=== PATIENT | male | born 2000 | race Two or more races ===

== ENCOUNTER 2023-08-09 14:40 | Emergency (ER) | payer BC ==
[~2023-08-09] VITALS: Ht 182.9 cm; Wt 68.0 kg
[2023-08-09] MEDS ORDERED: BUPRENORPHINE HCL 8 MG TAB.SUBL SL ONE ×2 (15:19→15:30)
[2023-08-09] MEDS ORDERED: ONDANSETRON HCL/PF 4 MG/2 ML VIAL ONE (15:19)
[2023-08-09] MEDS ORDERED: IV NS 0.9% 1,000 ML BAG IV ONE (15:30)
[2023-08-09] MEDS ORDERED: ONDANSETRON HCL/PF 4 MG/2 ML VIAL IVP ONE (15:30)
[2023-08-09 15:38] LABS: BASOPHILS % (AUTO) 0.1 % (0.0-2.0); EOSINOPHILS % (AUTO) 0.1 % (0.0-6.0); HEMATOCRIT 57 % (39-51); LYMPHOCYTES # (AUTO) 1.3 K/uL (0.8-4.8); MEAN CORPUSCULAR HEMOGLOBIN 29 PG (26.0-33.0); MEAN CORPUSCULAR HGB CONC 33 g/dl (31.0-36.0); MEAN CORPUSCULAR VOLUME 87 fL (80-96); MONOCYTES # (AUTO) 1.9 K/uL (0.1-1.30); MONOCYTES % (AUTO) 9.3 % (2.0-12.0); NEUTROPHILS # (AUTO) 17.7 K/uL (1.8-8.9); NEUTROPHILS % (AUTO) 84.5 % (43.0-81.0); PLATELET COUNT (AUTO) 450 K/uL (150-450); RED BLOOD CELL COUNT(AUTO) 6.54 MIL/uL (4.5-6.0); WHITE BLOOD COUNT (AUTO) 20.9 K/uL (4.3-11.0)
[2023-08-09 16:17] LABS: MAGNESIUM 2.6 mg/dL (1.8-2.4)
[2023-08-09 16:18] LABS: ALCOHOL, BLOOD < 3 mg/dL (0-10)
[2023-08-09 16:38] LABS: LACTIC ACID 6.1 mmol/L (0.4-2.0)
[2023-08-09] MEDS ORDERED: VANCOMYCIN 1 GM in IV D5W 250 ML IV ONE (17:00)
[2023-08-09] MEDS ORDERED: IV NS 0.9% 1,000 ML IV ONE (17:00)
[2023-08-09] MEDS ORDERED: CEFEPIME 1 GM in IV D5W 50 ML IV ONE (17:00)
[2023-08-09 17:31] LABS: CALCIUM, SERUM 8.8 mg/dL (8.5-10.1); CARBON DIOXIDE 34 mmol/L (21-32); CHLORIDE 96 mmol/L (98-107); CREATININE 1.9 mg/dL (0.6-1.3); GLUCOSE 148 mg/dL (74-106); SODIUM SERUM 140 mmol/L (136-145); UREA NITROGEN, BLOOD 37 mg/dL (7-18)
[2023-08-09 17:37] LABS: ALANINE AMINOTRANSFERASE 30 U/L (12-78); ALBUMIN 4.4 g/dL (3.4-5.0); ALKALINE PHOSPHATASE 99 U/L (46-116); ASPARTATE AMINOTRANSFERASE 12 U/L (15-37); BILIRUBIN,DIRECT 0.2 mg/dL (0.0-0.2); BILIRUBIN,TOTAL 1.4 mg/dL (0.2-1.0); LIPASE 153 U/L (73-393); TOTAL PROTEIN, SERUM 8.5 g/dL (6.4-8.2)
[2023-08-09] MEDS ORDERED: POTASSIUM CHLORIDE 20 MEQ TAB.PRT.SR PO ONE ×2 (18:00)
[2023-08-09 19:20] VITALS: BP 114/97; TEMP 98; O2SAT 97
[2023-08-09 19:59] LABS: LYMPHOCYTES % (MANUAL) 10 % (16-48); MONOCYTES % (MANUAL) 8 % (0-11.0); NEUTROPHILS % (MANUAL) 82 (42-76)
[2023-08-09 20:00] LABS: ANISOCYTOSIS 1+; PLATELET ESTIMATE ADEQUATE; ROULEAUX 1+
== END 2023-08-09 19:21 | disposition home or self-care (01) ==
LOC: ER 14:53
DX: F11.23 Opioid dependence with withdrawal (principal); E86.0 Dehydration; E87.6 Hypokalemia; E87.20 Acidosis, unspecified
CPT/HCPCS: 99284; 96365; 96366; 96367; 96375; 93005; 85025; 80048; 87040 ×2; 83605 ×2; 83690; 80076; 83735; 85007; 36415; 84484 ×2; 80320; J3370; J2405; J7060; A4223; J0692; G0480

== ENCOUNTER 2024-08-03 07:32 | Emergency (ER) | payer BC ==
[~2024-08-03] VITALS: Ht 182.9 cm; Wt 74.8 kg
[2024-08-03 07:40] VITALS: BP 141/77; TEMP 98.4
[2024-08-03] MEDS: ETHYL CHLORIDE SPRAY 1 EA BOTTLE TP ONE (07:59)
[2024-08-03] MEDS ORDERED: SULF1TAB48 PO (09:01)
[2024-08-03 09:12] VITALS: O2SAT 97
== END 2024-08-03 09:13 | disposition home or self-care (01) ==
LOC: ER 07:39
DX: L03.011 Cellulitis of right finger (principal)